=== PATIENT | female | born 1990 | race Caucasian/White ===

== ENCOUNTER → 2020-03-23 | Outpatient (CLI) | payer OTHER ==
[2020-03-23 15:08] LABS: HEMATOCRIT 44.3 % (36.0-47.0); MEAN CORPUSCULAR HEMOGLOBIN 30 pg (25-35); MEAN CORPUSCULAR HGB CONC 34 g/dL (31-37); MEAN CORPUSCULAR VOLUME 88 fL (79-100); PLATELET COUNT 315 x10^3/uL (140-400); RED BLOOD COUNT 5.04 x10^6/uL (3.50-5.40); RED CELL DISTRIBUTION WIDTH 14.4 % (11.5-14.5); WHITE BLOOD COUNT 10.1 x10^3/uL (4.0-11.0)
[2020-03-23 15:24] LABS: FREE T4 1.33 ng/dL (0.76-1.46); THYROID STIM HORMONE (TSH) 0.998 uIU/mL (0.358-3.74)
[2020-03-24 18:11] LABS: RUBELLA IGG ANTIBODY 2.55 index (Immune >0.99)
== END ==
LOC: LAB 14:12
PROVIDERS: ATTEND Obstetrics & Gynecology
DX: Z34.91 Encounter for supervision of normal pregnancy, unspecified, first trimester (principal)
CPT/HCPCS: 36415; 81220; 84439; 84443; 84702; 85027; 85660; 86592; 86703; 86762; 86787; 86803; 86850; 86900; 86901; 87086; 87340; 87491; 87591

== ENCOUNTER → 2020-04-07 | Outpatient (CLI) | payer OTHER ==
--- NOTE | 2020-04-07 16:26 | RAD ---
EXAM: Obstetrics sonogram. HISTORY: Viability scan. TECHNIQUE: Sonographic imaging of a gravid uterus was performed. COMPARISON: None. FINDINGS: The uterus measures 12.5 x 6 x 7.8 cm. There is a single intrauterine gestational sac with pole and yolk sac. The crown-rump length is 1.04 cm, corresponding with a gestational age of 7 weeks and 1 day and due date of 11/23/2020. There is a normal heart rate of 160 bpm. The g estational sac is normal in configuration and location. The ovaries are normal in size and demonstrat e normal blood flow. There is a 2.5 cm complex right ovarian cyst, likely hemorrhagic in etiology. Th ere is no pelvic free fluid. IMPRESSION: 1. Single intrauterine fetus with normal heart rate and gestational age patient ultrasound measuremen ts of 7 weeks and 1 day. 2. 2.5 cm suspected hemorrhagic right ovarian cyst. Electronically signed by: Bertha Helm MD (04/07/2020 4:23 PM) [id number]
== END ==
LOC: US 13:00
PROVIDERS: ATTEND Obstetrics & Gynecology
DX: Z34.91 Encounter for supervision of normal pregnancy, unspecified, first trimester (principal); Z3A.01 Less than 8 weeks gestation of pregnancy
CPT/HCPCS: 76801; 76817

== ENCOUNTER 2020-06-30 15:54 | Emergency (ER) | payer OTHER ==
[~2020-06-30] VITALS: Ht 152.4 cm; Wt 70.4 kg
[2020-06-30 16:10] LABS: BILIRUBIN,URINE NEGATIVE (NEG); CLARITY,URINE CLEAR; COLOR,URINE YELLOW; NITRITE,URINE NEGATIVE (NEG); PROTEIN,URINE NEGATIVE (NEG-TRACE); UROBILINOGEN,URINE 0.2 mg/dL (0.2 mg/dL)
[2020-06-30 16:20] LABS: BACTERIA,URINE FEW /HPF (0-FEW)
[2020-06-30 16:21] LABS: AMORPHOUS SEDIMENT,UR PRESENT /HPF; RBC,URINE RARE /HPF (0-2)
[2020-06-30 16:22] LABS: WBC,URINE OCC /HPF (0-4)
--- NOTE | 2020-06-30 17:37 | ED.ADGEN ---
Past Medical History Past Medical History: Hypothyroid Past Surgical History: No Surgical History Smoking Status: Never Smoker Alcohol Use: None General Adult EDM: Chief Complaint: ABDOMINAL PAIN IN HPI: HPI: Patient is a 29-year-old female at 19 weeks gestation who presents to the emergency room complaining of lower abdominal cramping. 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 She was stocking a cart which fell over onto her belly. She did not fall down but the cart did hit her lower abdomen. Since that time she has been having cramping in her lower abdomen. She states she intermittently gets some sharp pains. She is not had any vaginal bleeding. She believes that she has felt the baby move but is unsure. Her physician sent her here for evaluation after abdominal trauma. Review of Systems: Review of Systems: Complete ROS is negative unless otherwise documented in HPI Physical Exam: PE: General: Awake, alert, NAD. Well Nourished, well hydrated. Cooperative HEENT: Atraumatic, EOMI, PERRL, airway patent, moist oral mucosa Neck: Supple, trachea midline Respiratory: CTA bilaterally, normal effort, no wheezing/crackles CV: RRR, no murmur, cap refill <2 GI: Soft, gravid uterus at umbilicus, minimal lower abdominal tenderness, no masses MSK: No obvious deformities Skin: Warm, dry, intact Neuro: A&O x3, speech NL, sensory and motor grossly intact, no focal deficits Psych: Normal affect, normal mood, not suicidal or homicidal Current Patient Data: Labs: Laboratory Tests Test 06/30/20 15:57 06/30/20 16:05 Urine Collection Type Unknown Urine Color Yellow Urine Clarity Clear Urine pH 6.0 (<5.0-8.0) Urine Specific [place] 1.010 (1.000-1.030) Urine Protein Negative mg/dL (NEG-TRACE) Urine Glucose (UA) Negative mg/dL (NEG) Urine Ketones (Stick) 15 mg/dL (NEG) Urine Blood Negative (NEG) Urine Nitrite Negative (NEG) Urine Bilirubin Negative (NEG) Urine Urobilinogen Dipstick 0.2 mg/dL (0.2 mg/dL) Urine Leukocyte Esterase Negative (NEG) Urine RBC Rare /HPF (0-2) Urine WBC Occ /HPF (0-4) Urine Squamous Epithelial Cells Mod /LPF Urine Amorphous Sediment Present /HPF Urine Bacteria Few /HPF (0-FEW) Urine Mucus Slight /LPF POC Urine HCG, Qualitative Hcg positive (Negative) Vital Signs: Vital Signs Date Time Temp Pulse Resp B/P (MAP) Pulse Ox O2 Delivery O2 Flow Rate FiO2 06/30/20 16:10 98.1 93 18 132/70 (90) 99 Room Air 98.1 EKG: EKG: [] Heart Score: C/O Chest Pain: N/A Risk Factors: Risk Factors: DM, Current or recent (<one month) smoker, HTN, HLP, family history of CAD, obesity. Risk Scores: Score 0 - 3: 2.5% MACE over next 6 weeks - Discharge Home Score 4 - 6: 20.3% MACE over next 6 weeks - Admit for Clinical Observation Score 7 - 10: 72.7% MACE over next 6 weeks - Early Invasive Strategies Radiology/Procedures: Radiology/Procedures: Bedside ultrasound performed by myself shows fetus with heart tones and active movement Course & Med Decision Making: Course & Med Decision Making Pertinent Labs and Imaging studies reviewed. (See chart for details) Patient is a 29-year-old female at 19 weeks gestation who presents to the e mergency room complaining of abdominal cramping after trauma. Patient is O-. She is not currently having any vaginal bleeding. Bedside ultrasound was done and does show a fetus with heart tones and active movement. Formal ultrasound will be done to evaluate for any signs of bleeding. There is no signs of bleeding on ultrasound. There is no signs of abruption. Patient will follow up with Dr. Singh. Patient's test results and vitals while in the ED were fully reviewed and discussed with the patient. Patient is stable and at this time does not need admission to the hospital. We have discussed strict return precautions and the importance of following up with their Primary Care Physician. Patient stated understanding and was given an opportunity to ask any questions. Patient is in agreement with plan. Debbie Disclaimer: Debbie Disclaimer: This electronic medical record was generated, in whole or in part, using a voice recognition dictation system. Departure Departure Impression: Primary Impression: Trauma during Disposition: HOME / SELF CARE / HOMELESS Condition: STABLE Referrals: EDDY MORA (PCP) Patient Instructions: Abdominal Pain During , - Injuries MARLEN VAUGHN MD June 30, 2020 17:37
--- NOTE | 2020-06-30 17:43 | RAD ---
Exam: Ultrasound OB limited Indication: Abdominal trauma, Technique: Real-time grayscale and color Doppler images of the pelvis were obtained by the department personal consultant. Comparisons: None FINDINGS: Within the uterus there is a single live intrauterine gestation with heart rate measured at all 145 bpm. Fetus is in breech position. measurements as follows: BPD: 4.8 cm corresponding to 20 weeks 3 days Head circumference: 17.7 cm corresponding to 20 weeks 1 day Abdominal circumference: 14.9 cm corresponding to 20 weeks 1 day Femur length: 3.1 corresponding to 19 weeks 5 days Gestational age by ultrasound 20 weeks 1 day. EDC: 11/16/2020 Cervix is measured at 6.5 cm. WILFRED is visually normal. Placenta is posterior and appears normal. IMPRESSION: Single live intrauterine gestation with measurements as described above. Electronically signed by: Manuela Heredia MD (06/30/2020 5:41 PM) ROSA
[2020-06-30 20:09] VITALS: BP 116/68
[2020-06-30 20:21] VITALS: BP 118/72
[2020-06-30 20:24] VITALS: BP 115/54
[2020-06-30 20:28] VITALS: BP 119/66
== END 2020-06-30 20:30 | disposition home or self-care (01) ==
LOC: ER 15:54
DX: O9A.212 Injury, poisoning and certain other consequences of external causes complicating pregnancy, second trimester (principal); R10.30 Lower abdominal pain, unspecified; Z3A.19 19 weeks gestation of pregnancy; E03.9 Hypothyroidism, unspecified; W18.09XA Striking against other object with subsequent fall, initial encounter; Y93.89 Activity, other specified; Y92.89 Other specified places as the place of occurrence of the external cause; Y99.8 Other external cause status
CPT/HCPCS: 36415; 36430; 76815; 81001; 81025; 86850; 86900; 86901; 99285-25

== ENCOUNTER → 2020-07-07 | Outpatient (CLI) | payer OTHER ==
[2020-06-30 20:28] VITALS: BP 119/66
--- NOTE | 2020-07-07 14:16 | KCIC ---
Clinical indications: History of abdominal trauma. Follow-up exam. survey. COMPARISON: June 30, 2020. Findings: A single intrauterine fetus is seen in cephalic position. heart rate is 150 beats per minute. BPD is 4.97 cm which equals 21 weeks 0 days. HC is 18.56 cm which equals 20 weeks 6 days. AC is 14.67 cm which equals 20 weeks 0 days. FL is 3.23 cm which equals 20 weeks 0 days. Average gestational age by ultrasound is 20 weeks 3 days +/- 10 days with an EDC of November 21. There has been normal interval growth. Estimated weight is 0 lbs and 12 oz. A four-chamber heart and three-vessel cord are identified. stomach and urinary bladder are identified. kidneys are unremarkable. Cord insertion site is unremarkable. The intracranial structures and spine are morphologically normal in appearance. The ventricular trigone measurement is 6 mm. Cisterna magna measurement is 4 mm. Four extremities are identified. WILFRED using the four quadrant method is 12.5 cm. Cervical length is 4.0 cm. A grade 0 posterior placenta is seen. No placenta previa and no placenta abruptio is identified. The maternal ovaries are not visualized. Impression: Single IUP in cephalic presentation with gestational age of 20 weeks 3 days. Electronically signed by: Nicholas Kebede MD (07/07/2020 2:13 PM) [id number]
== END ==
LOC: KCIC US 12:20
PROVIDERS: ATTEND Obstetrics & Gynecology
DX: Z34.92 Encounter for supervision of normal pregnancy, unspecified, second trimester (principal); Z3A.20 20 weeks gestation of pregnancy
CPT/HCPCS: 76805

== ENCOUNTER → 2020-07-13 | Outpatient (CLI) | payer OTHER ==
[2020-06-30 20:28] VITALS: BP 119/66
== END ==
LOC: SPEC 14:53
PROVIDERS: ATTEND Obstetrics & Gynecology
DX: Z34.92 Encounter for supervision of normal pregnancy, unspecified, second trimester (principal); Z3A.00 Weeks of gestation of pregnancy not specified
CPT/HCPCS: Q0111

== ENCOUNTER 2020-07-31 14:38 | Observation (INO) | payer OTHER ==
[2020-07-31] MEDS ORDERED: IV RINGERS,LACTATED 1000ML 1,000 ML IV SCH (15:30)
[2020-07-31 15:41] LABS: CREATININE,RANDOM URINE 50.7 mg/dL (Not Establ.)
[2020-07-31 16:11] LABS: HEMATOCRIT 37.3 % (36.0-47.0); HEMOGLOBIN 12.8 g/dL (12.0-15.5); RED BLOOD COUNT 4.26 x10^6/uL (3.50-5.40); RED CELL DISTRIBUTION WIDTH 12.7 % (11.5-14.5)
[2020-07-31 16:28] LABS: CALCIUM 8.8 mg/dL (8.5-10.1); CREATININE 0.4 mg/dL (0.6-1.0); GFR 187.4; POTASSIUM 3.9 mmol/L (3.5-5.1)
[2020-07-31 16:34] LABS: ALBUMIN 2.9 g/dL (3.4-5.0); ALBUMIN/GLOBULIN RATIO 0.9 (1.0-1.7); TOTAL BILIRUBIN 0.3 mg/dL (0.2-1.0)
== END 2020-07-31 16:59 | disposition home or self-care (01) ==
LOC: 3 SO LND 14:38
PROVIDERS: ADMIT Obstetrics & Gynecology; ATTEND Obstetrics & Gynecology
DX: O26.892 Other specified pregnancy related conditions, second trimester (principal); R51.9 Headache, unspecified; H53.8 Other visual disturbances; R03.0 Elevated blood-pressure reading, without diagnosis of hypertension; Z3A.23 23 weeks gestation of pregnancy
CPT/HCPCS: 36415; 59025; 80053; 82570; 83615; 84156; 84550; 85027; G0378; G0379

== ENCOUNTER → 2020-08-10 | Outpatient (CLI) | payer OTHER ==
[2020-08-10 15:21] LABS: HEMATOCRIT 35.3 % (36.0-47.0); HEMOGLOBIN 12.4 g/dL (12.0-15.5); RED BLOOD COUNT 4.06 x10^6/uL (3.50-5.40); RED CELL DISTRIBUTION WIDTH 12.4 % (11.5-14.5)
[2020-08-10 15:48] LABS: FREE T4 0.95 ng/dL (0.76-1.46); THYROID STIM HORMONE (TSH) 0.857 uIU/mL (0.358-3.74)
== END ==
LOC: LAB 13:50
PROVIDERS: ATTEND Obstetrics & Gynecology
DX: Z34.92 Encounter for supervision of normal pregnancy, unspecified, second trimester (principal); Z3A.25 25 weeks gestation of pregnancy
CPT/HCPCS: 36415; 82950; 84439; 84443; 85027

== ENCOUNTER → 2020-08-17 | Outpatient (CLI) | payer OTHER | LOC: LAB 08:52 | PROVIDERS: ATTEND Obstetrics & Gynecology | DX: R73.02 Impaired glucose tolerance (oral) (principal) | CPT/HCPCS: 36415; 82947; 82950 ==

== ENCOUNTER → 2020-09-07 | Outpatient (CLI) | payer OTHER ==
[2020-09-07 14:46] LABS: ALBUMIN 2.7 g/dL (3.4-5.0); ALBUMIN/GLOBULIN RATIO 0.7 (1.0-1.7); CALCIUM 9.3 mg/dL (8.5-10.1); CREATININE 0.6 mg/dL (0.6-1.0); GFR 117.4; POTASSIUM 3.9 mmol/L (3.5-5.1); TOTAL BILIRUBIN 0.3 mg/dL (0.2-1.0); TOTAL PROTEIN 6.8 g/dL (6.4-8.2)
== END ==
LOC: LAB 13:52
PROVIDERS: ATTEND Obstetrics & Gynecology
DX: K83.1 Obstruction of bile duct (principal)
CPT/HCPCS: 36415; 80053

== ENCOUNTER → 2020-10-02 | Outpatient (CLI) | payer OTHER ==
--- NOTE | 2020-10-02 15:47 | RAD ---
EXAM: biophysical profile HISTORY: Weekly biophysical profile. COMPARISON: 07/07/2020 TECHNIQUE: Multiple grayscale images, color Doppler, and M-mode images of the uterus are obtained. FINDINGS: There is a single intrauterine gestation in cephalic presentation. The placenta is posterior fundal i n location without evidence of placenta previa. The amount of amniotic fluid appears appropriate. Am niotic fluid index is 13.6 cm. The cervix measures 4.1 cm in length. There is normal breathing motion, body motion and tone and there is a normal anatomic fluid volume for a biophysica l profile of 10/04. The estimated gestational age based on LMP is 32 weeks and 4 days and the estimated due date is 11/23/2020. IMPRESSION: 1. Single fetus in cephalic presentation with normal heart rate and gestational age based on LMP of 3 2 weeks and 4 days. 2. Normal biophysical profile of 10/04. Electronically signed by: Bertha Helm MD (10/02/2020 3:44 PM) [id number]
== END ==
LOC: US 14:34
PROVIDERS: ATTEND Obstetrics & Gynecology
DX: Z34.93 Encounter for supervision of normal pregnancy, unspecified, third trimester (principal); Z3A.32 32 weeks gestation of pregnancy
CPT/HCPCS: 76819

== ENCOUNTER → 2020-10-15 | Outpatient (CLI) | payer OTHER ==
--- NOTE | 2020-10-15 17:55 | RAD ---
CLINICAL HISTORY: Gestational diabetes. COMPARISON: None available. TECHNIQUE: Multiple grayscale images, color Doppler, and M-mode images of the uterus are obtained. Bi ophysical profile was performed. FINDINGS: The lie is vertex. WILFRED: 15.1 cm Heart Rate:133 BREATHIN. Technologist notes small breathing movements that do not last 30 seconds. MOVEMENT: 2 TONE: 2 FLUID: 2 BIOPHYSICAL PROFILE SCORE: 6/8 IMPRESSION: Biophysical profile score 6/8. Electronically signed by: Lex Roy MD (10/15/2020 5:53 PM) [id number]
== END ==
LOC: US 14:01
PROVIDERS: ATTEND Obstetrics & Gynecology
DX: O24.419 Gestational diabetes mellitus in pregnancy, unspecified control (principal)
CPT/HCPCS: 76819

== ENCOUNTER → 2020-10-23 | Outpatient (CLI) | payer OTHER ==
--- NOTE | 2020-10-23 11:42 | RAD ---
EXAM: biophysical profile. HISTORY: Gestational diabetes. TECHNIQUE: Sonographic imaging of a gravid uterus was performed. COMPARISON: 10/15/2020. FINDINGS: There is a single intrauterine fetus in cephalic presentation with a normal heart rate of 1 41 bpm. There is normal breathing motion, body motion and tone and there is a normal amni otic fluid volume. The amniotic fluid index is 11.2 cm. The estimated gestational age based on LMP is 35 weeks and 4 days. IMPRESSION: 1. Single fetus in cephalic presentation with a normal heart rate and gestational age based on LMP of 35 weeks and 4 days. 2. Normal biophysical profile 10/04. Electronically signed by: Bertha Helm MD (10/23/2020 11:40 AM) [id number]
== END ==
LOC: US 10:56
PROVIDERS: ATTEND Obstetrics & Gynecology
DX: O24.419 Gestational diabetes mellitus in pregnancy, unspecified control (principal); Z3A.35 35 weeks gestation of pregnancy
CPT/HCPCS: 76819

== ENCOUNTER → 2020-10-28 | Outpatient (CLI) | payer OTHER | LOC: SPEC 14:28 | PROVIDERS: ATTEND Obstetrics & Gynecology | DX: Z34.93 Encounter for supervision of normal pregnancy, unspecified, third trimester (principal); Z3A.00 Weeks of gestation of pregnancy not specified | CPT/HCPCS: 87653 ==

== ENCOUNTER → 2020-10-29 | Outpatient (CLI) | payer OTHER ==
--- NOTE | 2020-10-29 12:15 | RAD ---
CLINICAL HISTORY: Reason: GESTATIONAL DIABETES / Spl. Instructions: / History: COMPARISON: None available. TECHNIQUE: Multiple grayscale images, color Doppler, and M-mode images of the uterus are obtained. Bi ophysical profile was performed. FINDINGS: The lie is cephalic. WILFRED: 13.8 cm, normal Heart Rate:140 BREATHIN MOVEMENT: 2 TONE: 2 FLUID: 2 BIOPHYSICAL PROFILE SCORE: 8 IMPRESSION: Normal biophysical profile examination with BPP 8/8 heart rate is 140 and lie is cephalic. Electronically signed by: Domenico Bradshaw MD (10/29/2020 12:12 PM) [id number]
== END ==
LOC: US 07:46
PROVIDERS: ATTEND Obstetrics & Gynecology
DX: Z34.93 Encounter for supervision of normal pregnancy, unspecified, third trimester (principal)
CPT/HCPCS: 76819

== ENCOUNTER 2020-11-08 07:23 | Observation (INO) | payer OTHER ==
[2020-11-08] MEDS ORDERED: IV RINGERS,LACTATED 1000ML 1,000 ML IV SCH (07:30)
[2020-11-08 07:59] LABS: BILIRUBIN,URINE NEGATIVE (NEG); CLARITY,URINE CLEAR; COLOR,URINE YELLOW; NITRITE,URINE NEGATIVE (NEG); PH,URINE 6.5 (<5.0-8.0); PROTEIN,URINE NEGATIVE (NEG-TRACE); UROBILINOGEN,URINE 0.2 mg/dL (0.2 mg/dL)
[2020-11-08 09:06] LABS: BACTERIA,URINE 0 /HPF (0-FEW); RBC,URINE 0 /HPF (0-2); WBC,URINE RARE /HPF (0-4)
[2020-11-19] MEDS ORDERED: DOCU-109 PO (08:39)
[2020-11-19] MEDS ORDERED: IBUP-1060 PO (08:39)
[2020-11-22] MEDS ORDERED: NIFE30TA2 PO (11:27)
[2020-11-22] MEDS ORDERED: SERT50TA PO (11:27)
== END 2020-11-08 09:35 | disposition home or self-care (01) ==
LOC: 3 SO LND 07:23
PROVIDERS: ADMIT Obstetrics & Gynecology; ATTEND Obstetrics & Gynecology
DX: O42.92 Full-term premature rupture of membranes, unspecified as to length of time between rupture and onset of labor (principal); O62.9 Abnormality of forces of labor, unspecified; R51.9 Headache, unspecified; O26.893 Other specified pregnancy related conditions, third trimester; Z3A.37 37 weeks gestation of pregnancy
CPT/HCPCS: 81001; 82962; 87086; G0378; G0379; 59025

== ENCOUNTER → 2020-11-12 | Outpatient (CLI) | payer OTHER ==
[~2020-11-12] MED LIST: DOCU-109 PO; IBUP-1060 PO; LEVO50TA5 PO; NIFE30TA2 PO; NPH,100V SQ; PREN1TAB58 PO; SERT50TA PO
--- NOTE | 2020-11-12 10:17 | RAD ---
EXAM: biophysical profile. HISTORY: Gestational diabetes. TECHNIQUE: Sonographic imaging of a gravid uterus was performed. COMPARISON: 10/29/2020. FINDINGS: There is a single intrauterine fetus in cephalic presentation with a normal heart rate of 1 47 bpm. There is normal breathing motion, body motion and tone and there is a mikayla l amniotic fluid volume. The amniotic fluid index is 12.6 cm. The estimated gestational age based on LMP is 38 weeks and 3 days. IMPRESSION: 1. Single intrauterine fetus with normal heart rate in cephalic presentation. 2. Normal biophysical profile of 10/04. Electronically signed by: Bertha Helm MD (11/12/2020 10:15 AM) [id number]
== END ==
LOC: US 09:55
PROVIDERS: ATTEND Obstetrics & Gynecology
DX: O24.419 Gestational diabetes mellitus in pregnancy, unspecified control (principal); Z3A.38 38 weeks gestation of pregnancy
CPT/HCPCS: 76819

== ENCOUNTER 2020-11-15 18:07 | Inpatient (IN) | payer OTHER ==
[~2020-11-15] VITALS: Ht 152.4 cm; Wt 80.4 kg
[2020-11-15 18:30] VITALS: BP 129/82
[2020-11-15] MEDS: IV RINGERS,LACTATED 1000ML 1,000 ML IV SCH (18:30)
[2020-11-15] MEDS ORDERED: LIDOCAINE 1% PF 30 ML VIAL. INJ PRN (19:00)
[2020-11-15] MEDS ORDERED: DINOPROSTONE 10 MG SUPP.VAG VG ONE (19:00)
[2020-11-15] MEDS ORDERED: TERBUTALINE 1 MG/ML VIAL. SQ PRN (19:00)
[2020-11-15] MEDS ORDERED: BUTORPHANOL 2 MG/ML VIAL. IVP PRN ×2 (19:00)
[2020-11-15] MEDS ORDERED: OXYTOCIN 30 UNIT/500 ML PREMIX 500 ML IV PRN ×2 (19:00)
[2020-11-15] MEDS ORDERED: 0.9 % SODIUM CHLORIDE 10 ML DISP.SYRIN. IV PRN (19:00)
[2020-11-15] MEDS ORDERED: LEVO50TA5 PO (19:18)
[2020-11-15] MEDS ORDERED: PREN1TAB58 PO (19:18)
[2020-11-15] MEDS ORDERED: NPH,100V SQ (19:30)
[2020-11-15 19:33] LABS: BASO # 0.1 x10^3/uL (0.0-0.2); BASO % 0 % (0-3); EOS # 0.2 x10^3/uL (0.0-0.7); EOS % 2 % (0-3); HEMATOCRIT 35.2 % (36.0-47.0); HEMOGLOBIN 11.7 g/dL (12.0-15.5); LYMPH # 2.4 x10^3/uL (1.0-4.8); LYMPH % 19 % (24-48); MEAN CORPUSCULAR HEMOGLOBIN 26 pg (25-35); MEAN CORPUSCULAR HGB CONC 33 g/dL (31-37); MEAN CORPUSCULAR VOLUME 79 fL (79-100); MONO # 0.6 x10^3/uL (0.0-1.1); MONO % 5 % (0-9); NEUT # 9.5 x10^3/uL (1.8-7.7); NEUT % 75 % (31-73); PLATELET COUNT 283 x10^3/uL (140-400); RED BLOOD COUNT 4.45 x10^6/uL (3.50-5.40); RED CELL DISTRIBUTION WIDTH 15.9 % (11.5-14.5); WHITE BLOOD COUNT 12.8 x10^3/uL (4.0-11.0)
[2020-11-16] MEDS: ACETAMINOPHEN 325 MG TABLET. PO PRN ×2 (05:59→21:47)
[2020-11-16] MEDS ORDERED: OXYTOCIN PREMIX 30 UNIT/500 ML NS BAG. IV ONE (07:45)
[2020-11-16] MEDS ORDERED: PENICILLIN G K 5,000,000 UNIT in IV DEXTROSE 5% 100ML 100 ML IV ONE (08:00)
[2020-11-16] MEDS: IV RINGERS,LACTATED 1000ML 1,000 ML IV SCH ×3 (08:40→17:17)
[2020-11-16] MEDS: PENICILLIN G K 2,500,000 UNIT in IV DEXTROSE 5% 50 ML IV SCH ×3 (12:32→20:00)
[2020-11-16] MEDS ORDERED: NALOXONE 0.4 MG/ML VIAL. IV PRN (13:30)
[2020-11-16] MEDS ORDERED: fentaNYL PF VIAL 100 MCG/2 ML VIAL EPID ONE (13:30)
[2020-11-16] MEDS ORDERED: IV RINGERS,LACTATED 1000ML 1,000 ML IV ONE (13:30)
[2020-11-16] MEDS ORDERED: ONDANSETRON PF 4 MG/2 ML VIAL. IV PRN (13:30)
[2020-11-16] MEDS ORDERED: ePHEDrine PF IN SALINE 50 MG/10 ML SYRINGE. IV PRN (13:30)
[2020-11-16] MEDS ORDERED: ROPIVacaine 0.2% PF 10 ML VIAL. ONE ×3 (14:14→22:51)
[2020-11-16] MEDS ORDERED: L&D EPIDURAL 50 ML SYRINGE. ONE (14:30)
--- NOTE | 2020-11-16 15:40 | PDOC1 ---
HOSE BUILDER H&P Date of Admission: Date of Admission: Nov 15, 2020 at 18:07 History of Present Illness: EDC: 11/23/20 LMP: 02/17/20 30y @ 39.0 by L=7 presents for scheduled indxn. The pt was referred to [facility] after she was dxed with GDM. She was initially on Metformin, but was ultimately switched to insulin b/c she was having too many hypoglycemic episodes. She had some BP issues outside of , but has mostly had nml range BPs throughout . She has had some elevations at work and at her last [facility] visit. She has had some recent issues with BOLDEN. PMH: Hypothyroidism, Anxiety, Depression, Viral meningitis PSH: tonsillectomy Meds: PNV, levothyroxine All: NKDA OBHx: G1 SH: no tob, no EtOH FH: DM, HTN Medications: Meds: Current Medications Medications (Trade) Dose Ordered Sig/Sara Route PRN Reason Start Time Stop Time Status Last Admin Dose Admin Penicillin G Potassium 8240620 unit/Dextrose 100 ml @ 100 mls/hr 1X ONCE IV 11/16/20 08:00 11/16/20 08:59 DC 11/16/20 08:30 Penicillin G Potassium 8808829 unit/Dextrose 50 ml @ 100 mls/hr Q4H IV 11/16/20 12:00 11/16/20 12:32 Allergies: Coded Allergies: No Known Drug Allergies (Unverified , 06/30/20) Physical Exam: Vital Signs: Vital Signs Date Time Temp Pulse Resp B/P (MAP) Pulse Ox O2 Delivery O2 Flow Rate FiO2 11/15/20 18:30 98.8 95 18 129/82 (98) 98 Room Air 98.8 PE: GENERAL: No apparent distress. Alert and oriented. HEENT: Head normocephalic, atraumatic. NECK: Supple LUNGS: Clear to auscultation. HEART: RRR, S1, S2 present, pulses intact ABDOMEN: Soft, positive bowel sounds. EXTREMITIES: No cyanosis or edema. NEUROLOGIC: Normal speech, normal tone PSYCHIATRIC: Normal affect, normal mood. SKIN: No ulceration. FHT: 150s +acels/no decels/mLTV [place]:1-3 min : 2-3/60/-2 Labs: Laboratory Tests Test 11/15/20 18:30 9/19/21 22:31 11/16/20 07:21 11/16/20 09:14 White Blood Count 12.8 x10^3/uL (4.0-11.0) H Red Blood Count 4.45 x10^6/uL (3.50-5.40) Hemoglobin 11.7 g/dL (12.0-15.5) L Hematocrit 35.2 % (36.0-47.0) L Mean Corpuscular Volume 79 fL (79-100) Mean Corpuscular Hemoglobin 26 pg (25-35) Mean Corpuscular Hemoglobin Concent 33 g/dL (31-37) Red Cell Distribution Width 15.9 % (11.5-14.5) H Platelet Count 283 x10^3/uL (140-400) Neutrophils (%) (Auto) 75 % (31-73) H Lymphocytes (%) (Auto) 19 % (24-48) L Monocytes (%) (Auto) 5 % (0-9) Eosinophils (%) (Auto) 2 % (0-3) Basophils (%) (Auto) 0 % (0-3) Neutrophils # (Auto) 9.5 x10^3/uL (1.8-7.7) H Lymphocytes # (Auto) 2.4 x10^3/uL (1.0-4.8) Monocytes # (Auto) 0.6 x10^3/uL (0.0-1.1) Eosinophils # (Auto) 0.2 x10^3/uL (0.0-0.7) Basophils # (Auto) 0.1 x10^3/uL (0.0-0.2) Glucose Level 114 mg/dL (70-99) H Treponema pallidum Antibody Nonreactive (Nonreactive) Glucose (Fingerstick) 87 mg/dL (70-99) 88 mg/dL (70-99) 86 mg/dL (70-99) Test 11/16/20 11:15 11/16/20 13:30 11/16/20 15:15 Glucose (Fingerstick) 74 mg/dL (70-99) 92 mg/dL (70-99) 74 mg/dL (70-99) Laboratory Tests 11/15/20 18:30 Laboratory Tests 11/15/20 18:30 Laboratory Tests 11/15/20 18:30 Assessment & Plan: A/P 30y @ 39.0 by L=7 1.) PRIME 2.) Indxn s/p cervidil, on Pit 2.) A2DM - on NPH 8U qhs during 3.) Rh neg 4.) H/o cHTN - BP nml to mild (only 2 milds) 5.) Hypothyroidism - on Synthroid, TSH wnl 6.) H/o palpitations - s/p cardiology consult 7.) s/p Covid vaccine 8.) Panorama - low risk 9.) Fetus cat I FHT, 3146 gm (56%, 11/04/20) 10.) Boy - Christo 11.) TDAP given 09/21/20 12.) GBS pos on PCN TOBIAS VAZQUEZ MD Nov 16, 2020 15:40
[2020-11-16] MEDS: L&D EPIDURAL SYRINGE 50 ML EPID PRN ×2 (17:46→21:14)
[2020-11-16] MEDS ORDERED: LIDOCAINE 2% PF 5 ML VIAL. ONE (22:47)
--- NOTE | 2020-11-17 00:32 | PDOC4 ---
OPERATIVE NOTE: PreOp Dx: 1.) IUP @ 39.1 by L=7, 2.) Indxn, 3.) A2DM, 4.) Rh neg, 5.) H/o cHTN, 6.) Hypothyroidism, 7.) H/o palpitations, 8.) GBS pos, 9.) Maternal exhaustion, 10.) Cat II FHT PostOp Dx: same Procedure: VAVD Surgeon: Nigel Vazquez Anesthesia: Epidural EBL: 300 cc Complications: None Findings: viable male delivered at 0004. Wt 7lb 1oz. Apgars 7/9. 2nd laceration repaired with 20 vicryl. Cord ABG pending TOBIAS VAZQUEZ MD Nov 17, 2020 00:32
[2020-11-17] MEDS: IV RINGERS,LACTATED 1000ML 1,000 ML IV SCH (03:00)
[2020-11-17 03:48] VITALS: BP 118/71
[2020-11-17] MEDS ORDERED: MAG HYDROX/ALUMINUM HYD/SIMETH 30 ML ORAL.SUSP PO PRN ×2 (06:15→09:15)
[2020-11-17] MEDS ORDERED: oxyCODONE/APAP 5/325 1 TAB TABLET PO PRN ×2 (06:15→09:15)
[2020-11-17] MEDS ORDERED: MAGNESIUM HYDROXIDE 2,400 MG/30 ML ORAL.SUSP. PO PRN ×2 (06:15→09:15)
[2020-11-17] MEDS ORDERED: HYDROCORTISONE 1% TOPICAL OINTMENT 30GM TUBE. TP PRN ×2 (06:15→09:15)
[2020-11-17] MEDS ORDERED: IBUPROFEN 400 MG TABLET. PO PRN ×4 (06:15→06:30)
[2020-11-17] MEDS ORDERED: PHENYLEPH/MINERAL OIL/PETROLAT RECTAL OINTMENT TUBE. RC PRN ×2 (06:15→09:15)
[2020-11-17] MEDS ORDERED: ZOLPIDEM 5 MG TABLET. PO PRN ×2 (06:15→09:15)
[2020-11-17] MEDS ORDERED: SIMETHICONE 80 MG TAB.CHEW PO PRN ×2 (06:15→09:15)
[2020-11-17] MEDS ORDERED: DOCUSATE SODIUM 100 MG CAPSULE. PO PRN (06:15)
[2020-11-17] MEDS ORDERED: OXYTOCIN 30 UNIT/500 ML PREMIX 500 ML IV PRN ×2 (06:15→09:15)
[2020-11-17] MEDS ORDERED: TDaP (Adacel) per PROTOCOL. MC PRN ×2 (06:15→09:15)
[2020-11-17] MEDS ORDERED: MMR per PROTOCOL. MC PRN ×2 (06:15→09:15)
[2020-11-17] MEDS ORDERED: diphenhydrAMINE HCL 25 MG CAPSULE PO PRN ×2 (06:15→09:15)
[2020-11-17] MEDS ORDERED: BENZOCAINE 20% TOPICAL AEROSOL SPRAY 57GM CAN. TP PRN ×2 (06:15→09:15)
[2020-11-17 06:38] VITALS: BP 133/67
[2020-11-17 07:52] VITALS: BP 109/56
[2020-11-17] MEDS ORDERED: PRENATAL MULTIVITAMIN TABLET. PO SCH (09:00)
[2020-11-17] MEDS ORDERED: 0.9 % SODIUM CHLORIDE 10 ML DISP.SYRIN. IV PRN (09:15)
[2020-11-17] MEDS: ACETAMINOPHEN 325 MG TABLET. PO PRN ×2 (11:33→20:04)
[2020-11-17 12:30] VITALS: BP 120/56
[2020-11-17] MEDS: LEVOTHYROXINE 50 MCG TABLET PO SCH (12:51)
--- NOTE | 2020-11-17 13:59 | OP ---
DATE OF SURGERY: 11/17/2020 PREOPERATIVE DIAGNOSES: 1. Intrauterine at 39 weeks and 1 day by LMP equal to a 7-week ultrasound. 2. Induction of labor. 3. A2 diabetes. 4. Rh negative. 5. Chronic hypertension. 6. Hypothyroidism. 7. History of palpitations. 8. GBS positive. 9. Maternal exhaustion. 10. Category 2 heart tracing. POSTOPERATIVE DIAGNOSES: 1. Intrauterine at 39 weeks and 1 day by LMP equal to a 7-week ultrasound. 2. Induction of labor. 3. A2 diabetes. 4. Rh negative. 5. Chronic hypertension. 6. Hypothyroidism. 7. History of palpitations. 8. GBS positive. 9. Maternal exhaustion. 10. Category 2 heart tracing. PROCEDURE: Vacuum-assisted vaginal delivery. SURGEON: Cristian Singh MD. ANESTHESIA: Epidural. ESTIMATED BLOOD LOSS: 300 mL. COMPLICATIONS: None. FINDINGS: Viable male infant delivered at 0004 hours, weighing 7 pounds 1 ounce with Apgars of 7 and 9. A second-degree laceration was noted and repaired with 2-0 Vicryl. Cord ABG found to have a pH of 6.98 and a base excess of -12 and a cord VBG with a pH of 7.21 and a base excess of -9. INDICATIONS: The patient is a 30-year-old 1, para 0 who presented to Labor and Delivery on 11/15/2020 for induction of labor at 38 weeks and 6 days by LMP to a 7-week ultrasound. DESCRIPTION OF PROCEDURE: A cervidil was placed that evening, the following morning it was removed and she was started on Pitocin. The patient progressed throughout most of the day and around 1500, her membranes were ruptured. The patient ultimately got to complete around 2300. At that time, pushing was initiated. Throughout the pushing, the patient did well with good progression. As more time passed the baby was beginning to have deep variables to the 60s with occasional contractions. The patient was also expressing some exhaustion, so after around an hour of pushing, discussion was held with the patient regarding vacuum-assisted vaginal delivery. I explained the risk of cephalohematoma, retinal hemorrhage, scalp lacerations as well as intracranial hemorrhage to the patient. I explained the risk of intracranial hemorrhage was very low, that of 1 in and 900, which was equivalent to a . The patient was willing to proceed with a vacuum. At around 2359, the vacuum was placed and with the next contraction, traction was placed while the patient pushed. The baby was brought to [facility]. With the next contraction, the vacuum was once again used with traction while the patient pushed. The head was then delivered, the vacuum was then removed. The infant was delivered atraumatically. A tight nuchal cord was noted. The patient delivered a viable male over intact perineum at 0004. The infant was bulb suctioned at the perineum. The cord was double clamped and cut and was handed over to the waiting director strategy after delayed cord clamping was performed. The weight was found to be 7 pounds 1 ounce with Apgars of 7 and 9. The placenta was then delivered intact with a 3-vessel cord. There is a second-degree laceration that was repaired with 2-0 Vicryl in normal fashion. Good hemostasis was noted. At that point, 20 units of Pitocin were infused with IV fluids. EBL was found to be [address]: Charlene TID: [id number] MTDD
[2020-11-17] MEDS: IBUPROFEN 400 MG TABLET. PO PRN (16:45)
[2020-11-17 16:52] VITALS: BP 127/74
[2020-11-17 19:56] VITALS: BP 123/72
[2020-11-17] MEDS: DOCUSATE SODIUM 100 MG CAPSULE. PO PRN (20:03)
[2020-11-17] MEDS: PRENATAL MULTIVITAMIN TABLET. PO SCH (20:03)
[2020-11-18 00:07] VITALS: BP 115/69
[2020-11-18] MEDS: IBUPROFEN 400 MG TABLET. PO PRN ×3 (00:30→17:52)
[2020-11-18] MEDS: ACETAMINOPHEN 325 MG TABLET. PO PRN ×2 (04:02→12:42)
[2020-11-18 04:03] VITALS: BP 117/73
[2020-11-18 04:31] LABS: HEMATOCRIT 29.8 % (36.0-47.0); HEMOGLOBIN 9.6 g/dL (12.0-15.5); RED BLOOD COUNT 3.67 x10^6/uL (3.50-5.40); RED CELL DISTRIBUTION WIDTH 16.4 % (11.5-14.5); WHITE BLOOD COUNT 17.5 x10^3/uL (4.0-11.0)
[2020-11-18] MEDS ORDERED: LEVOTHYROXINE 50 MCG TABLET PO SCH (06:00)
[2020-11-18 08:00] VITALS: BP 120/77
[2020-11-18] MEDS ORDERED: FERROUS SULFATE 325 MG TABLET. PO SCH (08:00)
[2020-11-18] MEDS: PRENATAL MULTIVITAMIN TABLET. PO SCH (08:08)
[2020-11-18] MEDS: LEVOTHYROXINE 50 MCG TABLET PO SCH (08:08)
[2020-11-18] MEDS: DOCUSATE SODIUM 100 MG CAPSULE. PO PRN ×2 (08:13→17:51)
--- NOTE | 2020-11-18 10:56 | PDOC ---
TRUCK SAFETY INSPECTOR PROGRESS NOTE Date of Service: DATE: 11/18/20 TIME: 10:56 Subjective: Pt with good pain control. Clair PO. Voiding. Minimal lochia Objective: Vital Signs: Vital Signs Date Time Temp Pulse Resp B/P (MAP) Pulse Ox O2 Delivery O2 Flow Rate FiO2 11/17/20 07:42 Room Air 11/17/20 07:52 99.0 81 20 109/56 (73) 99.0 11/17/20 19:56 100 Vital Signs Date Time Temp Pulse Resp B/P (MAP) Pulse Ox O2 Delivery O2 Flow Rate FiO2 11/18/20 09:51 Room Air 11/18/20 08:00 98.0 72 18 120/77 (91) 98.0 11/18/20 04:03 97 Labs: Laboratory Tests Test 11/18/20 04:15 White Blood Count 17.5 x10^3/uL (4.0-11.0) H Red Blood Count 3.67 x10^6/uL (3.50-5.40) Hemoglobin 9.6 g/dL (12.0-15.5) L Hematocrit 29.8 % (36.0-47.0) L Mean Corpuscular Volume 81 fL (79-100) Mean Corpuscular Hemoglobin 26 pg (25-35) Mean Corpuscular Hemoglobin Concent 32 g/dL (31-37) Red Cell Distribution Width 16.4 % (11.5-14.5) H Platelet Count 222 x10^3/uL (140-400) Laboratory Tests 11/18/20 04:15 Laboratory Tests 11/18/20 04:15 Physical Exam: GENERAL: No apparent distress. Alert and oriented. HEENT: Head normocephalic, atraumatic. NECK: Supple LUNGS: Clear to auscultation. HEART: RRR, S1, S2 present, pulses intact ABDOMEN: Soft, positive bowel sounds. EXTREMITIES: No cyanosis or edema. NEUROLOGIC: Normal speech, normal tone PSYCHIATRIC: Normal affect, normal mood. SKIN: No ulceration. FFNT below umb No C/C/E Assessment & Plan: A/P 30y PPD #1 s/p VAVD 1.) PP doing well 2.) Elevated depression screen discussed with pt. No intervention necessary at this time 3.) A2DM - on NPH 8U qhs during 4.) Rh neg baby O neg 5.) H/o cHTN a few mild BPs during labor, all nml since delivery 6.) Hypothyroidism - on Synthroid 7.) H/o palpitations - s/p cardiology consult 8.) s/p Covid vaccine 9.) TDAP given 09/21/20 10.) Anemia Hgb 11.7 -> 9.6 11.) Cont PP care TOBIAS VAZQUEZ MD Nov 18, 2020 10:56
[2020-11-18] MEDS: FERROUS SULFATE 325 MG TABLET. PO SCH ×2 (12:41→17:00)
--- NOTE | 2020-11-18 13:35 | NUR ---
Referral received for assessment of post depression. PAT team referral made for assessment and recommendations. Mother RN notified.
[2020-11-18 17:00] VITALS: BP 136/61
[2020-11-18 21:34] VITALS: BP 136/76
[2020-11-18 23:50] VITALS: BP 122/56
[2020-11-19] MEDS: IBUPROFEN 400 MG TABLET. PO PRN ×2 (01:42→10:57)
[2020-11-19 04:02] VITALS: BP 130/61
[2020-11-19] MEDS: ACETAMINOPHEN 325 MG TABLET. PO PRN (07:39)
[2020-11-19] MEDS: DOCUSATE SODIUM 100 MG CAPSULE. PO PRN (08:30)
[2020-11-19] MEDS: LEVOTHYROXINE 50 MCG TABLET PO SCH (08:31)
[2020-11-19] MEDS: PRENATAL MULTIVITAMIN TABLET. PO SCH (08:31)
[2020-11-19] MEDS: FERROUS SULFATE 325 MG TABLET. PO SCH (08:31)
[2020-11-19] MEDS ORDERED: IBUP-1060 PO (08:39)
[2020-11-19] MEDS ORDERED: DOCU-109 PO (08:39)
[2020-11-19 08:59] VITALS: BP 121/71
--- NOTE | 2020-11-19 09:42 | PDOC ---
RETAIL MORTGAGE BANKER PROGRESS NOTE Date of Service: DATE: 11/19/20 TIME: 09:42 Subjective: Pt with good pain control. Clair PO. Voiding. Minimal lochia Objective: Vital Signs: Vital Signs Date Time Temp Pulse Resp B/P (MAP) Pulse Ox O2 Delivery O2 Flow Rate FiO2 11/18/20 08:00 98.0 72 18 120/77 (91) 98.0 11/18/20 09:51 Room Air 11/18/20 21:34 97 Vital Signs Date Time Temp Pulse Resp B/P (MAP) Pulse Ox O2 Delivery O2 Flow Rate FiO2 11/19/20 08:59 98.2 65 20 121/71 (88) 95 Room Air 98.2 Physical Exam: GENERAL: No apparent distress. Alert and oriented. HEENT: Head normocephalic, atraumatic. NECK: Supple LUNGS: Clear to auscultation. HEART: RRR, S1, S2 present, pulses intact ABDOMEN: Soft, positive bowel sounds. EXTREMITIES: No cyanosis or edema. NEUROLOGIC: Normal speech, normal tone PSYCHIATRIC: Normal affect, normal mood. SKIN: No ulceration. FFNT below umb No C/C/E Assessment & Plan: A/P 30y PPD #2 s/p VAVD 1.) PP doing well 2.) Elevated depression screen discussed with pt. No intervention necessary at this time 3.) A2DM 4.) Rh neg baby O neg 5.) H/o cHTN a few mild BPs during labor, all nml since delivery 6.) Hypothyroidism - on Synthroid 7.) H/o palpitations - s/p cardiology consult 8.) s/p Covid vaccine 9.) TDAP given 09/21/20 10.) Anemia Hgb 11.7 -> 9.6 11.) D/c home TOBIAS VAZQUEZ MD Nov 19, 2020 09:42
--- NOTE | 2020-11-19 09:58 | DS ---
DATE OF DISCHARGE: 11/19/2020 ADMISSION DIAGNOSES: 1. Intrauterine at 38 weeks and 6 days by LMP equal to a 7-week ultrasound. 2. Induction of labor. 3. A2 diabetes. 4. Rh negative. 5. History of chronic hypertension. 6. Hypothyroidism. 7. History of palpitations. 8. Status post COVID vaccine. 9. Status post Tdap. 10. GBS positive DISCHARGE DIAGNOSES: 1. Intrauterine at 38 weeks and 6 days by LMP equal to a 7-week ultrasound. 2. Induction of labor. 3. A2 diabetes. 4. Rh negative. 5. History of chronic hypertension. 6. Hypothyroidism. 7. History of palpitations. 8. Status post COVID vaccine. 9. Status post Tdap. 10. GBS positive. 11. Maternal exhaustion. PROCEDURE: Vacuum-assisted vaginal delivery. BRIEF HOSPITAL COURSE: The patient is a 30-year-old 1, para 0 who presented to labor and delivery on 11/15/2020 for induction of labor at 38 weeks and 6 days. Cervidil was placed that evening. Following morning, Pitocin was started. The patient ultimately got to complete them around 2300 and ultimately had a vacuum-assisted vaginal delivery. See operative note for full detail. By day #2, the patient was meeting all discharge criteria and subsequently discharged home. Of note, the patient's hemoglobin on admission was 11.7 and after delivery, was found to be 9.6. The patient was not given RhoGAM because the baby was found to be O negative. The patient had a few mild range blood pressures during labor, but ultimately after delivery, all the blood pressures remained normal. Also of note, the patient had elevated depression screen and saw the PAT team. At that time, it was felt that the patient did not need medication, but close followup was indicated. DISCHARGE INSTRUCTIONS: The patient was told not to lift anything greater than 20 pounds, have pelvic rest for 6 weeks. CALL IF: The patient was to call if she had fevers, chills, nausea, vomiting, abdominal pain or any additional questions or concerns. FOLLOWUP APPOINTMENT: The patient was to follow up on 12/29/2020 at 11:00 a.m. for a visit. DISCHARGE MEDICATIONS: The patient was given a prescription for Motrin 800 mg, 30 pills and Colace 100 mg, 30 pills. DIANA/ZION DR: Charlene TID: [id number] [id number]
[2020-11-19] MEDS ORDERED: FLU VACC QUAD 21-22 (6MOS+) PF 0.5 ML SYRINGE. VAX IM ONE (15:00)
[2020-11-19 15:32] VITALS: BP 135/80
--- NOTE | 2020-11-19 15:39 | NUR ---
1529 Patient dc'd with spouse all belonging with patient, vs stable, Pt dc instructions reviewed and pt aware of when to call for complications. Pt amb to vehicle at this time.
== END 2020-11-19 15:29 | disposition home or self-care (01) | DRG 807 ==
LOC: 3 SO LND 18:07
PROVIDERS: ADMIT Obstetrics & Gynecology; ATTEND Obstetrics & Gynecology
PROC: 10D07Z6 Extraction of Products of Conception, Vacuum, Via Natural or Artificial Opening (ICD-10-PCS; principal; 2020-11-17)
PROC: 0KQM0ZZ Repair Perineum Muscle, Open Approach (ICD-10-PCS; 2020-11-17)
PROC: 00HU33Z Insertion of Infusion Device into Spinal Canal, Percutaneous Approach (ICD-10-PCS; 2020-11-17)
PROC: 3E0R3BZ Introduction of Anesthetic Agent into Spinal Canal, Percutaneous Approach (ICD-10-PCS; 2020-11-17)
DX: O24.429 Gestational diabetes mellitus in childbirth, unspecified control (principal); Z37.0 Single live birth; F32.9 Major depressive disorder, single episode, unspecified; O99.02 Anemia complicating childbirth; D64.9 Anemia, unspecified; E03.9 Hypothyroidism, unspecified; O99.824 Streptococcus B carrier state complicating childbirth; O16.4 Unspecified maternal hypertension, complicating childbirth; O70.1 Second degree perineal laceration during delivery; O75.81 Maternal exhaustion complicating labor and delivery; F41.9 Anxiety disorder, unspecified; O99.344 Other mental disorders complicating childbirth; O99.284 Endocrine, nutritional and metabolic diseases complicating childbirth; O69.1XX0 Labor and delivery complicated by cord around neck, with compression, not applicable or unspecified; Z3A.39 39 weeks gestation of pregnancy; Z83.3 Family history of diabetes mellitus; Z82.49 Family history of ischemic heart disease and other diseases of the circulatory system
CPT/HCPCS: 36415; 82947; 82962; 85025; 85027; 86592; 86850; 86900; 86901; 90471; 90686; J2405; J2540; J2590; J2795; J3010; J7060; J7120; G0378

== ENCOUNTER 2020-11-21 19:13 | Observation (INO) | payer OTHER ==
[~2020-11-21] VITALS: Ht 152.4 cm; Wt 75.7 kg
[~2020-11-21 19:13] MED LIST changes: -NIFE30TA2 PO; -SERT50TA PO
--- NOTE | 2020-11-21 19:44 | PHYS DOC ---
Past Medical History Past Medical History: Hypothyroid Additional Past Medical Histor: GESTATONAL DM Past Surgical History: No Surgical History Smoking Status: Never Smoker Alcohol Use: None General Adult EDM: Chief Complaint: OTHER COMPLAINTS HPI: HPI: Patient is a 30-year-old female presenting for shortness of breath. She is day 4 from an uncomplicated vaginal delivery. States she has history of hypothyroidism controlled with levothyroxine only. Does admit that she suffered from gestational diabetes requiring insulin use. States that over past 24 hours she has had increased shortness of breath, feels like a seatbelt is around her lungs. Reports positional changes make it worse with worsened short of breath when laying flat or on her side. States she is anxious at baseline which is contributing to her feelings of shortness of breath and at times feels that she has palpitations. No fever, seizures, vision changes, chest pain, ripping or tearing sensation in chest, productive cough, abdominal pain, bladder or bowel incontinence or other concerning symptoms. States she had swelling present in the later portions of her and had " quite a lot of IV fluid" at time of delivery due to hypotension from epidural. She is fully vaccinated against COVID-19 with no known sick contacts or recent travel. Review of Systems: Review of Systems: Fourteen body systems of review of systems have been reviewed. See HPI for pertinent positives and negative responses, other rodriguez all other systems are negative, non-pertinent or non-contributory Heart Score: C/O Chest Pain: No HEART Score for Chest Pain: HEART Score for Chest Pain Response (Comments) Value History Slighlty/Non-Suspicious 0 ECG Normal 0 Age < 45 0 Risk Factors No Risk Factors 0 Troponin < Normal Limit 0 Total 0 Risk Factors: Risk Factors: DM, Current or recent (<one month) smoker, HTN, HLP, family history of CAD, obesity. Risk Scores: Score 0 - 3: 2.5% MACE over next 6 weeks - Discharge Home Score 4 - 6: 20.3% MACE over next 6 weeks - Admit for Clinical Observation Score 7 - 10: 72.7% MACE over next 6 weeks - Early Invasive Strategies Allergies: Allergies: Allergies Coded Allergies Type Severity Reaction Last Updated Verified No Known Drug Allergies 06/30/20 No Physical Exam: PE: Constitutional: Well developed, well nourished, no acute distress, non-toxic appearance. HENT: Normocephalic, atraumatic, bilateral external ears normal, oropharynx moist, no oral exudates, nose normal. Eyes: PERRLA, EOMI, conjunctiva normal, no discharge. Neck: Normal range of motion, no tenderness, supple, no stridor. Cardiovascular: Heart rate regular, sinus rhythm, no murmurs rubs or gallops Lungs & Thorax: Bilateral breath sounds clear to auscultation, no accessory muscle use or increased work of breathing. No respiratory distress Abdomen: Bowel sounds normal, soft, no tenderness, no masses, no pulsatile masses. Nonsurgical abdomen, no peritoneal signs Skin: Warm, dry, no erythema, no rash. Back: No tenderness, no CVA tenderness. Extremities: No tenderness, no cyanosis, no clubbing, ROM intact, no edema. Neurologic: Alert and oriented X 3, grossly normal motor & sensory function, no focal deficits noted. Psychologic: Anxious affect and mood Current Patient Data: Labs: Laboratory Tests Test 11/21/20 19:52 11/21/20 20:57 White Blood Count 14.1 x10^3/uL Red Blood Count 3.73 x10^6/uL Hemoglobin 9.9 g/dL Hematocrit 30.0 % Mean Corpuscular Volume 80 fL Mean Corpuscular Hemoglobin 27 pg Mean Corpuscular Hemoglobin Concent 33 g/dL Red Cell Distribution Width 16.8 % Platelet Count 322 x10^3/uL Neutrophils (%) (Auto) 71 % Lymphocytes (%) (Auto) 22 % Monocytes (%) (Auto) 4 % Eosinophils (%) (Auto) 2 % Basophils (%) (Auto) 1 % Neutrophils # (Auto) 10.0 x10^3/uL Lymphocytes # (Auto) 3.1 x10^3/uL Monocytes # (Auto) 0.6 x10^3/uL Eosinophils # (Auto) 0.2 x10^3/uL Basophils # (Auto) 0.2 x10^3/uL Sodium Level 142 mmol/L Potassium Level 4.1 mmol/L Chloride Level 109 mmol/L Carbon Dioxide Level 22 mmol/L Anion Gap 11 Blood Urea Nitrogen 12 mg/dL Creatinine 1.0 mg/dL Estimated GFR (Cockcroft-Gault) 64.7 BUN/Creatinine Ratio 12 Glucose Level 93 mg/dL Calcium Level 8.3 mg/dL Total Bilirubin 0.2 mg/dL Aspartate Amino Transf (AST/SGOT) 32 U/L Alanine Aminotransferase (ALT/SGPT) 89 U/L Alkaline Phosphatase 99 U/L Troponin I Quantitative < 0.017 ng/mL [id number]-Type Natriuretic Peptide 1064 pg/mL Total Protein 6.2 g/dL Albumin 2.4 g/dL Albumin/Globulin Ratio 0.6 Urine Collection Type Unknown Urine Color Yellow Urine Clarity Clear Urine pH 7.5 Urine Specific [place] 1.015 Urine Protein Negative mg/dL Urine Glucose (UA) Negative mg/dL Urine Ketones (Stick) Negative mg/dL Urine Blood Large Urine Nitrite Negative Urine Bilirubin Negative Urine Urobilinogen Dipstick 1.0 mg/dL Urine Leukocyte Esterase Moderate Urine RBC >40 /HPF Urine WBC 5-10 /HPF Urine Squamous Epithelial Cells Few /LPF Urine Bacteria Few /HPF Vital Signs: Vital Signs Date Time Temp Pulse Resp B/P (MAP) Pulse Ox O2 Delivery O2 Flow Rate FiO2 11/21/20 19:31 98.5 61 16 167/81 (109) 99 Room Air 98.5 EKG: EKG: EKG ordered and interpreted by myself at 1956 hrs. as sinus rhythm at 58 bpm, unremarkable intervals, no axis deviation, no RV strain, no STEMI Radiology/Procedures: Radiology/Procedures: XR CHEST 1V 11/21/2020 7:41 PM INDICATION: Shortness of breath, day for COMPARISON: None available TECHNIQUE: Portable frontal view of the chest is provided. FINDINGS: The cardiomediastinal silhouette is within normal limits. Lungs are clear. There are no significant pleural effusions. There is no pulmonary vascular congestion. No pneumothorax. No suspicious osseous abnormality. IMPRESSION: There is no acute cardiopulmonary process. Electronically signed by: Carlie Barfield MD (11/21/2020 8:12 PM) [facility] Course & Med Decision Making: Course & Med Decision Making Airway patent, breathing unlabored, IV access and vitals obtained concerning for slight high blood pressure without diagnosis of hypertension HPI, physical exam and comprehensive ER work-up obtained and nonconcerning for any emergent or surgical issues I disclosed omitting D-dimer inpatient as it would obviously be high, question risk-benefit of CT angio with patient. I discussed concerning diagnoses that are less likely such as pulmonary embolism and/or cardiomyopathy Case discussed with patient's [employer] TECHNICIAN, Dr. Sanchez. He agreed to work-up so far and recommended hospital admission for observation, no emergent need for CT angio at this time I updated patient on entirety of ER findings and discussion with Dr. Singh with recommendation for hospital admission, she was amenable. All questions and concerns patient and at bedside had were addressed prior to hospital admission to L&D floor [facility] Disclaimer: Debbie Disclaimer: This electronic medical record was generated, in whole or in part, using a voice recognition dictation system. Departure Departure Impression: Primary Impression: problem Additional Impression: Shortness of breath Disposition: ADMITTED INPATIENT Admitting Physician: KILLIAN (DR SINGH) Condition: STABLE Referrals: EDDY MORA (PCP) KIKI GOODWIN DO Nov 21, 2020 19:44
[2020-11-21 20:05] LABS: BASO # 0.2 x10^3/uL (0.0-0.2); BASO % 1 % (0-3); EOS # 0.2 x10^3/uL (0.0-0.7); EOS % 2 % (0-3); HEMOGLOBIN 9.9 g/dL (12.0-15.5); LYMPH # 3.1 x10^3/uL (1.0-4.8); LYMPH % 22 % (24-48); MEAN CORPUSCULAR HEMOGLOBIN 27 pg (25-35); MEAN CORPUSCULAR HGB CONC 33 g/dL (31-37); MEAN CORPUSCULAR VOLUME 80 fL (79-100); MONO # 0.6 x10^3/uL (0.0-1.1); MONO % 4 % (0-9); NEUT % 71 % (31-73); PLATELET COUNT 322 x10^3/uL (140-400); RED BLOOD COUNT 3.73 x10^6/uL (3.50-5.40); RED CELL DISTRIBUTION WIDTH 16.8 % (11.5-14.5); WHITE BLOOD COUNT 14.1 x10^3/uL (4.0-11.0)
--- NOTE | 2020-11-21 20:14 | RAD ---
XR CHEST 1V 11/21/2020 7:41 PM INDICATION: Shortness of breath, day for COMPARISON: None available TECHNIQUE: Portable frontal view of the chest is provided. FINDINGS: The cardiomediastinal silhouette is within normal limits. Lungs are clear. There are no significant pleural effusions. There is no pulmonary vascular congestion. No pneumothora x. No suspicious osseous abnormality. IMPRESSION: There is no acute cardiopulmonary process. Electronically signed by: Carlie Barfield MD (11/21/2020 8:12 PM) [facility]
[2020-11-21 20:17] LABS: CALCIUM 8.3 mg/dL (8.5-10.1); GFR 64.7; POTASSIUM 4.1 mmol/L (3.5-5.1)
[2020-11-21 20:23] LABS: ALBUMIN 2.4 g/dL (3.4-5.0); ALBUMIN/GLOBULIN RATIO 0.6 (1.0-1.7); TOTAL BILIRUBIN 0.2 mg/dL (0.2-1.0); TOTAL PROTEIN 6.2 g/dL (6.4-8.2)
[2020-11-21 21:05] LABS: BILIRUBIN,URINE NEGATIVE (NEG); CLARITY,URINE CLEAR; COLOR,URINE YELLOW; NITRITE,URINE NEGATIVE (NEG); PH,URINE 7.5 (<5.0-8.0); PROTEIN,URINE NEGATIVE (NEG-TRACE)
[2020-11-21 21:10] LABS: RBC,URINE >40 /HPF (0-2)
[2020-11-21 21:14] LABS: BACTERIA,URINE FEW /HPF (0-FEW)
[2020-11-21] MEDS ORDERED: ACETAMINOPHEN 325 MG TABLET. PO PRN (21:45)
[2020-11-21] MEDS ORDERED: NITROGLYCERIN SUBLINGUAL 0.4 MG BOTTLE OF 25. SL PRN (21:45)
[2020-11-21] MEDS ORDERED: 0.9 % SODIUM CHLORIDE 10 ML DISP.SYRIN. IV PRN (23:30)
[2020-11-21 23:45] VITALS: BP 137/78
[2020-11-22] MEDS ORDERED: ZOLPIDEM 5 MG TABLET. PO PRN
[2020-11-22] MEDS: IBUPROFEN 400 MG TABLET. PO PRN ×2 (00:06→08:25)
--- NOTE | 2020-11-22 01:44 | EKG ---
[facility] [address] [place] [address] Test Date: 2020-11-21 Test Time: 19:48:01 Pat Name: KIRILL HANSON Department: Room: Gender: F Pageant Director: : 1990 Requested By: KIKI GOODWIN Order Number: [id number] Reading MD: Measurements Intervals [place] Rate: 58 P: 31 MS: 126 QRS: 6 QRSD: 70 T: 34 QT: 398 QTc: 394 Interpretive Statements SINUS RHYTHM NORMAL ECG RI6.01 No previous ECG available for comparison
[2020-11-22 05:57] VITALS: BP 129/69
[2020-11-22] MEDS ORDERED: LEVOTHYROXINE 50 MCG TABLET PO SCH (06:00)
[2020-11-22] MEDS ORDERED: PRENATAL MULTIVITAMIN TABLET. PO SCH (09:00)
--- NOTE | 2020-11-22 11:03 | PDOC1 ---
CLINICAL RESEARCH TECH H&P Date of Admission: Date of Admission: Nov 21, 2020 at 20:21 History of Present Illness: The pt is a 30y s/p VAVD on 11/17/20 who presented to the ER with SOA. The pt called the office reporting that her BP was severe and since going home she has had difficulty sleeping on her back b/c of SOA. The pt was advised to present to the hospital for eval. In the ER labs and imaging were obtained. Her initial BP was severe, but subsequent BPs were nml to mild. All PIH labs were nml, with no protein in her UA. The CXR revealed There is no acute cardiopulmonary process. During her labor course the pt also had some elevated BPs. PMH: Hypothyroidism, Anxiety, Depression, Viral meningitis PSH: tonsillectomy Meds: PNV, levothyroxine All: NKDA OBHx: TVAVD SH: no tob, no EtOH FH: DM, HTN Medications: Meds: Current Medications Medications (Trade) Dose Ordered Sig/Sara Route PRN Reason Start Time Stop Time Status Last Admin Dose Admin Levothyroxine Sodium (Synthroid) 50 mcg DAILY06 PO 11/22/20 06:00 11/22/20 05:52 Multivit/ Folic Acid/Iron (Multivitamin ) 1 tab DAILY PO 11/22/20 09:00 11/22/20 08:24 Ibuprofen (Motrin) 800 mg PRN Q6HRS PRN PO INFLAMMATION 11/22/20 00:00 11/22/20 08:25 Zolpidem Tartrate (Ambien) 5 mg PRN QHS PRN PO INSOMNIA 11/22/20 00:00 11/22/20 00:06 Allergies: Coded Allergies: No Known Drug Allergies (Unverified , 06/30/20) Physical Exam: Vital Signs: Vital Signs Date Time Temp Pulse Resp B/P (MAP) Pulse Ox O2 Delivery O2 Flow Rate FiO2 11/22/20 05:57 97.8 51 18 129/69 (89) 98 Room Air 97.8 PE: GENERAL: No apparent distress. Alert and oriented. HEENT: Head normocephalic, atraumatic. NECK: Supple LUNGS: Clear to auscultation. HEART: RRR, S1, S2 present, pulses intact ABDOMEN: Soft, positive bowel sounds. EXTREMITIES: No cyanosis or edema. NEUROLOGIC: Normal speech, normal tone PSYCHIATRIC: Normal affect, normal mood. SKIN: No ulceration. Labs: Laboratory Tests Test 11/21/20 19:52 11/21/20 20:57 11/21/20 21:51 White Blood Count 14.1 x10^3/uL (4.0-11.0) H Red Blood Count 3.73 x10^6/uL (3.50-5.40) Hemoglobin 9.9 g/dL (12.0-15.5) L Hematocrit 30.0 % (36.0-47.0) L Mean Corpuscular Volume 80 fL (79-100) Mean Corpuscular Hemoglobin 27 pg (25-35) Mean Corpuscular Hemoglobin Concent 33 g/dL (31-37) Red Cell Distribution Width 16.8 % (11.5-14.5) H Platelet Count 322 x10^3/uL (140-400) Neutrophils (%) (Auto) 71 % (31-73) Lymphocytes (%) (Auto) 22 % (24-48) L Monocytes (%) (Auto) 4 % (0-9) Eosinophils (%) (Auto) 2 % (0-3) Basophils (%) (Auto) 1 % (0-3) Neutrophils # (Auto) 10.0 x10^3/uL (1.8-7.7) H Lymphocytes # (Auto) 3.1 x10^3/uL (1.0-4.8) Monocytes # (Auto) 0.6 x10^3/uL (0.0-1.1) Eosinophils # (Auto) 0.2 x10^3/uL (0.0-0.7) Basophils # (Auto) 0.2 x10^3/uL (0.0-0.2) Sodium Level 142 mmol/L (136-145) Potassium Level 4.1 mmol/L (3.5-5.1) Chloride Level 109 mmol/L (98-107) H Carbon Dioxide Level 22 mmol/L (21-32) Anion Gap 11 (6-14) Blood Urea Nitrogen 12 mg/dL (7-20) Creatinine 1.0 mg/dL (0.6-1.0) Estimated GFR (Cockcroft-Gault) 64.7 BUN/Creatinine Ratio 12 (6-20) Glucose Level 93 mg/dL (70-99) Calcium Level 8.3 mg/dL (8.5-10.1) L Total Bilirubin 0.2 mg/dL (0.2-1.0) Aspartate Amino Transferase (AST) 32 U/L (15-37) Alanine Aminotransferase (ALT) 89 U/L (14-59) H Alkaline Phosphatase 99 U/L (46-116) Troponin I Quantitative < 0.017 ng/mL (0.000-0.055) SO-Xgt-H-Type Natriuretic Peptide 1064 pg/mL (0-124) H Total Protein 6.2 g/dL (6.4-8.2) L Albumin 2.4 g/dL (3.4-5.0) L Albumin/Globulin Ratio 0.6 (1.0-1.7) L Urine Collection Type Unknown Urine Color Yellow Urine Clarity Clear Urine pH 7.5 (<5.0-8.0) Urine Specific [place] 1.015 (1.000-1.030) Urine Protein Negative mg/dL (NEG-TRACE) Urine Glucose (UA) Negative mg/dL (NEG) Urine Ketones (Stick) Negative mg/dL (NEG) Urine Blood Large (NEG) Urine Nitrite Negative (NEG) Urine Bilirubin Negative (NEG) Urine Urobilinogen Dipstick 1.0 mg/dL (0.2 mg/dL) Urine Leukocyte Esterase Moderate (NEG) Urine RBC >40 /HPF (0-2) Urine WBC 5-10 /HPF (0-4) Urine Squamous Epithelial Cells Few /LPF Urine Bacteria Few /HPF (0-FEW) SARS-CoV-2 RNA (SIRISHA) Negative (Negative) SARS-CoV-2 Antigen (Rapid) Negative (NEGATIVE) Laboratory Tests 11/21/20 19:52 Laboratory Tests 11/21/20 19:52 Laboratory Tests 11/21/20 19:52 Assessment & Plan: A/P 30y s/p VAVD on 11/17/20 1.) PP doing well 2.) SOA CXR neg for pul edema, sating well on RA 3.) cHTN w/o s/s of preclampsia, BP mostly nml to mild, but did have a severe 4.) Elevated depression screen - will d/c on Zoloft 5.) A2DM 6.) Rh neg 7.) Hypothyroidism - on Synthroid 8.) H/o palpitations - s/p cardiology consult 9.) s/p Covid vaccine 10.) TDAP given 09/21/20 11.) Anemia Hgb 9.9 TOBIAS VAZQUEZ MD Nov 22, 2020 11:03
[2020-11-22] MEDS ORDERED: SERT50TA PO (11:27)
[2020-11-22] MEDS ORDERED: NIFE30TA2 PO (11:27)
[2020-11-22 11:30] VITALS: BP 135/75
--- NOTE | 2020-11-22 12:25 | NUR ---
dischargede walked out with RN and . VSS
--- NOTE | 2020-11-22 21:11 | DS ---
DATE OF DISCHARGE: 11/22/2020 ADMISSION DIAGNOSES: 1. Status post vacuum-assisted vaginal delivery on 11/17/2020. 2. Shortness of breath. 3. Chronic hypertension with concerns of superimposed preeclampsia. 4. blues. 5. A2 diabetes. 6. Rh negative. 7. Hypothyroidism. 8. History of palpitations. 9. Status post COVID vaccine. 10. Status post DTaP. 11. Anemia. DISCHARGE DIAGNOSES: 1. Status post vacuum-assisted vaginal delivery on 11/17/2020. 2. Shortness of breath. 3. Chronic hypertension with concerns of superimposed preeclampsia. 4. blues. 5. A2 diabetes. 6. Rh negative. 7. Hypothyroidism. 8. History of palpitations. 9. Status post COVID vaccine. 10. Status post DTaP. 11. Anemia. PROCEDURE: None. BRIEF HOSPITAL COURSE: The patient is a 30-year-old 1, para 1-0-0-1, status post vacuum-assisted vaginal delivery on 11/17/2020 who presented to the ER with shortness of air. The patient called the office reporting that her blood pressure with severe she was having difficulty sleeping due to shortness of breath. The patient was advised to go to the hospital for evaluation due to her high blood pressure. There were concerns that she might have superimposed preeclampsia with complications such as pulmonary edema. In the ER, labs and imaging were obtained. Her initial blood pressure was severe but subsequent blood pressures were normal to mild. Her PIH labs returned normal with a negative protein on her UA. Chest x-ray revealed no acute cardiopulmonary processes. During the course of her labor, the patient had a few elevated blood pressures and was diagnosed with chronic hypertension early in the . The patient was monitored overnight, her blood pressures on the floor, remained normal to mild following morning, the patient remained without any signs or symptoms of preeclampsia. Her O2 sats were above 98% on room air. The patient was subsequently discharged with the instruction of starting a new blood pressure medicine as well as something for a blues. DISCHARGE INSTRUCTIONS: The patient was told not to lift anything greater than 20 pounds, have pelvic rest for 6 weeks. CALL IF: The patient will call if she had fevers, chills, nausea, vomiting, headache, changes in vision, abdominal pain or any additional questions or concerns. FOLLOWUP APPOINTMENT: The patient was to follow up on 11/25/2020 at 01:30 p.m. for a blood pressure check. DISCHARGE MEDICATIONS: The patient was given a prescription for Procardia 30 pills and Zoloft 50 mg, 30 pills. DIANA/SARA DR: Charlene TID: [id number]
== END 2020-11-22 12:30 | disposition home or self-care (01) ==
LOC: ER 19:13 → 3 SO LND 20:21
PROVIDERS: ADMIT Obstetrics & Gynecology; ATTEND Obstetrics & Gynecology
DX: O24.414 Gestational diabetes mellitus in pregnancy, insulin controlled (principal); Z20.822 Contact with and (suspected) exposure to COVID-19
CPT/HCPCS: 36415; 71045; 80053; 81001; 83880; 84484; 85025; 87086; 87426; 93005; 99285; G0378; U0003; U0005; G0379

== ENCOUNTER → 2021-02-10 | Outpatient (CLI) | payer OTHER ==
[~2021-02-10] MED LIST changes: +NIFE30TA2 PO; +SERT50TA PO
== END ==
LOC: LAB 09:20
PROVIDERS: ATTEND Obstetrics & Gynecology
DX: Z39.2 Encounter for routine postpartum follow-up (principal)
CPT/HCPCS: 36415; 82947; 84443